=== PATIENT | male | born 1950 | race Caucasian/White ===

== ENCOUNTER → 2021-06-26 | Outpatient (CLI) | payer MEDICARE, OTHER | LOC: ORTHO 11:30 | PROVIDERS: ATTEND Orthopaedic Surgery | DX: M17.9 Osteoarthritis of knee, unspecified (principal) | CPT/HCPCS: 99203 ==

== ENCOUNTER → 2021-07-24 | Outpatient (CLI) | payer MEDICARE, OTHER ==
[~2021-07-24] VITALS: Ht 182.9 cm; Wt 135.3 kg
[~2021-07-24] MED LIST: CHLO25TA22 PO; DILT240T10 PO; FLEC50TA PO; LOVA40TA2 PO; METO-333 PO; RIVA20TA PO
[2021-07-24 09:36] VITALS: BP 139/68
[2021-07-24 10:23] LABS: BASOPHILS % (AUTO) 0 % (0-10); EOSINOPHILS # (AUTO) 0.2 10^3/uL (0.0-0.3); EOSINOPHILS % (AUTO) 3 % (0-10); HEMATOCRIT 42 % (40-54); HEMOGLOBIN 13.9 g/dL (13.3-17.7); LYMPHOCYTES # (AUTO) 1.2 10^3/uL (1.0-4.0); LYMPHOCYTES % (AUTO) 18 % (12-44); MEAN CORPUSCULAR HEMOGLOBIN 31 pg (25-34); MEAN CORPUSCULAR HGB CONC 33 g/dL (32-36); MEAN CORPUSCULAR VOLUME 94 fL (80-99); MEAN PLATELET VOLUME 11.9 fL (9.0-12.2); MONOCYTES # (AUTO) 0.6 10^3/uL (0.0-1.0); MONOCYTES % (AUTO) 9 % (0-12); NEUTROPHILS # (AUTO) 4.6 10^3/uL (1.8-7.8); NEUTROPHILS % (AUTO) 69 % (42-75); PLATELET COUNT 193 10^3/uL (130-400); WHITE BLOOD COUNT 6.6 10^3/uL (4.3-11.0)
[2021-07-24 10:25] LABS: BILIRUBIN,URINE NEGATIVE (NEGATIVE); CLARITY,URINE CLEAR; COLOR,URINE YELLOW; GLUCOSE, URINE (UA) NEGATIVE (NEGATIVE); KETONES,URINE NEGATIVE (NEGATIVE); LEUKOCYTE ESTERASE ,URINE NEGATIVE (NEGATIVE); NITRITE,URINE NEGATIVE (NEGATIVE); PROTEIN,URINE NEGATIVE (NEGATIVE)
[2021-07-24 10:34] LABS: BACTERIA,URINE NEGATIVE /HPF; SQUAMOUS EPITHELIAL CELL,UR RARE /HPF
[2021-07-24 10:39] LABS: CALCIUM 9.4 MG/DL (8.5-10.1); CREATININE SERUM 1.21 MG/DL (0.60-1.30)
== END ==
LOC: PREOP 09:20
PROVIDERS: ATTEND Orthopaedic Surgery
DX: Z01.818 Encounter for other preprocedural examination (principal); M17.12 Unilateral primary osteoarthritis, left knee
CPT/HCPCS: 36415; 80048; 81000; 85025; 86850; 86900; 86901; 87081; 93005

== ENCOUNTER → 2021-07-24 | Outpatient (CLI) | payer MEDICARE, OTHER ==
--- NOTE | 2021-07-24 09:21 | Diagnostic Imaging Report ---
INDICATION: Preoperative evaluation prior to knee replacement. EXAMINATION: 2 view chest 07/24/2021 FINDINGS: The heart is unremarkable. Pulmonary vasculature unremarkable. There are coarsened chronic changes throughout the lungs with no infiltrates or effusions. No pneumothorax. IMPRESSION: 1. No acute cardiopulmonary process. Dictated by: Dictated on workstation # [id number]
== END ==
LOC: ORTHO 08:27
PROVIDERS: ATTEND Orthopaedic Surgery
DX: Z01.89 Encounter for other specified special examinations (principal); M17.12 Unilateral primary osteoarthritis, left knee; Z96.652 Presence of left artificial knee joint
CPT/HCPCS: 71046

== ENCOUNTER → 2021-08-15 | Outpatient (CLI) | payer MEDICARE, OTHER ==
--- NOTE | 2021-08-15 09:20 | Diagnostic Imaging Report ---
Indication: Left knee pain 4 views of the left knee shows no fracture, dislocation or other acute abnormality. There is considerable narrowing of the medial compartment with milder narrowing of the patellofemoral compartment. There is some spurring of all 3 compartments. There is no effusion. IMPRESSION: There are tricompartmental degenerative changes present most pronounced in the medial compartment. Dictated by: Dictated on workstation # [id number]
== END ==
LOC: RAD 08:08
PROVIDERS: ATTEND Orthopaedic Surgery
DX: M17.12 Unilateral primary osteoarthritis, left knee (principal)
CPT/HCPCS: 73564

== ENCOUNTER 2021-08-20 05:59 | Inpatient (IN) | payer MEDICARE, OTHER ==
[2021-08-20] VITALS (12 sets, daily range): BP systolic 143–160; BP diastolic 60–91
[~2021-08-20] VITALS: Ht 182 cm; Wt 135.3 kg
[2021-08-20] MEDS ORDERED: ceFAZolin INJECTION 3,000 MG in NS (IVPB) 100 ML IV ONE (06:15)
[2021-08-20] MEDS ORDERED: proPOfol 200 MG/20 ML (DIPRIVAN) VIAL IV ONE (06:57)
[2021-08-20] MEDS ORDERED: fentaNYL INJ 100 MCG/2 ML AMP ONE ×2 (06:57→07:49)
[2021-08-20] MEDS ORDERED: ONDANSETRON 4 MG/2 ML (SDV) Z0FRAN ONE (06:57)
[2021-08-20] MEDS ORDERED: LIDOCAINE PF 2% 5 ML (XYLOCAINE) VIAL ONE (06:57)
[2021-08-20] MEDS ORDERED: SEVOFLURANE (ULTANE) 15 ML INHAL SOLN ONE ×2 (06:57→09:34)
[2021-08-20] MEDS ORDERED: MIDAZOLAM 2 MG/2 ML (VERSED) VIAL ONE (06:57)
[2021-08-20] MEDS ORDERED: TRANEXAMIC ACID 100 MG/ML 10 ML INJECTION ONE (06:58)
[2021-08-20] MEDS ORDERED: SUCCINYLCHOLINE INJ 100 MG/5 ML SYR/VIAL ONE (06:58)
--- NOTE | 2021-08-20 07:09 | Progress Note-Pre Operative ---
Pre-Operative Progress Note H&P Reviewed The H&P was reviewed, patient examined and no changes noted. Date Seen by Provider: Aug 20, 2021 Time Seen by Provider: 07:00 Date H&P Reviewed: Aug 20, 2021 Time H&P Reviewed: 07:00 Pre-Operative Diagnosis: Left Knee Primary Osteoarthritis MAEVE CANADA MD Aug 20, 2021 07:09
[2021-08-20] MEDS: LACTATED RINGERS 1,000 ML IV PRN ×2 (07:11→10:30)
[2021-08-20] MEDS ORDERED: SODIUM CHLORIDE 0.9% IRRIGATIO 150 ML, TRANEXAMIC ACID INJECTION 3,000 MG IR ONE ×2 (07:30)
[2021-08-20] MEDS ORDERED: ROCURONIUM 50 MG/5 ML (ZEMURON) VIAL IV ONE (09:40)
[2021-08-20] MEDS ORDERED: morphine INJ 10 MG/ML 1ML (SYR OR VIAL) ONE (10:27)
[2021-08-20] MEDS ORDERED: morphine INJ 10 MG/ML 1ML (SYR OR VIAL) IVP ONE (10:30)
[2021-08-20] MEDS ORDERED: fentaNYL INJ 100 MCG/2 ML AMP IVP ONE (10:30)
[2021-08-20] MEDS ORDERED: morphine PCA 100 MG/100 ML BAG IV PRN (10:30)
[2021-08-20] MEDS ORDERED: ONDANSETRON 4 MG/2 ML (SDV) Z0FRAN IVP PRN (10:30)
[2021-08-20] MEDS ORDERED: HYDROmorphone 2 MG/ML VIAL (DILAUDID) IV ONE (10:30)
[2021-08-20] MEDS ORDERED: NALOXONE 0.4 MG/ML 1 ML (NARCAN) VIAL IV PRN ×2 (10:30)
[2021-08-20] MEDS ORDERED: MEPERIDINE (DEMEROL) INJ 50 MG/ML IVP ONE (10:30)
--- NOTE | 2021-08-20 10:43 | Operative Report - Ortho ---
Operative Report Surgeon (s)/Tool Crib Clerk (s) Surgeon MAEVE CANADA MD Tool Crib Clerk n/a Pre-Operative Diagnosis Left Knee Primary Osteoarthritis Post-Operative Diagnosis same Operative Report Date of Procedure: Aug 20, 2021 Name of Procedure Performed: Left Total Knee Arthroplasty Description & Findings After obtaining informed consent and marking the patient in the preoperative holding area, the patient did receive IV antibiotics. Patient was taken to the operating room and anesthesia was induced. Surgical timeout was taken. The left lower extremity was prepped and draped in the usual sterile fashion. Incision was made and carried down to fascia. Arthrotomy was performed on the medial side of the patella. Patella was retracted laterally and knee was flexed. Found to have circumferential osteophtye around the distal femur as well as exposed bone in the medial compartment. Hole was made in the distal femur for the intramedullary distal femoral cutting guide. Resection was made then the femur was sized as a 7. 4-in-1 block for a size [address]. Anterior cut was made and there was no notch. Posterior cut was made followed by the chamfers. Box cut was performed. Lug holes were drilled. Attention was turned to the tibial side, extramedullary tibial guide was put into place and aligned with the tibial crest. It was set to take 2 mm off of the affected medial side. Drop vincent was used to confirm alignment. Resection was made and was parallel to the joint line. Tibial bone block was removed. Lamina lead business systems analyst was put into place and the menisci and posterior osteophytes were removed. The knee was trialed with a size 7 femur and a size 7 tibia with a 9 mm poly trial. It was found to come out to full extension and flexed beyond 120 degrees. It was stable to varus and valgus stress throughout its range of motion. This was accepted. Knee was brought out into extension and the patella was prepared for an inset patellar button. Patellar trial was placed and this tracked well through the groove of the trial femur. Trial implants were removed. Tibial trial was pinned and punched. The cut bone surfaces were lavaged with pulsatile normal saline. Implants were opened and assembled on the back table. Cement was mixed. Cement was applied to the cut bone surface as well as the implant surface. A size 7 tibial component was impacted into placed and excess cement was removed using a [place]. A size 7 femoral component was impacted into place and excess cement was removed using a [place]. Tibial tray was lavaged with saline. A 9 mm thick polyethylene component was locked into placed and the locking mechanism was checked. Knee was brought into extension. Patellar surface was irrigated, dried, and then cement was applied. Patellar component was clamped into place and excess cement was removed using the [place]. The knee was irrigated with normal saline. Irrigation was removed and tranexamic acid was placed. Once the cement had set, the knee was once again trialed; found to come to full extension, flexed beyond 120 degrees, and was stable to varus and valgus stress. Further tranexamic acid was applied for hemostasis. Tourniquet was dropped and electrocautery was used for further hemostasis. Fascial layer was closed with #1 Ethibond. The subcutaneous layer was closed with 2-0 Vicryl. The skin was closed with a running subcuticular 3-0 V-loc. Wound was dressed with mastisol, steri-strips, xeroform, 4x4s, ABD, webril, and JERZY wrap. Patient tolerated the procedure well and was stable to the recovery room. Anesthesia Type General Estimated Blood Loss ~150 mL Specimen(s) collected/removed None MAEVE CANADA MD Aug 20, 2021 10:43
--- NOTE | 2021-08-20 11:07 | Diagnostic Imaging Report ---
KNEE, LEFT, 2 VIEWS (AP LAT) INDICATION: Left total knee arthroplasty, immediate postop COMPARISON: Preoperative radiographs of 08/15/2021 TECHNIQUE: AP and crosstable lateral views of left knee FINDINGS: Expected postoperative soft tissue swelling and joint fluid from total knee arthroplasty. Patellar resurfacing has been performed. Arthroplasty components are in good alignment. No periprosthetic fracture. IMPRESSION: No acute periprosthetic fracture. Dictated by: Dictated on workstation # [id number]
[2021-08-20] MEDS: D5 NS 1000 ML IV SOLUTION 1,000 ML IV SCH ×3 (13:05→23:08)
--- NOTE | 2021-08-20 13:17 | Physical Therapy Evaluation ---
PT Evaluation-General Medical Diagnosis Admission Date Aug 20, 2021 at 05:59 Medical Diagnosis: Left TKR/OA Onset Date: Aug 20, 2021 Therapy Diagnosis Therapy Diagnosis: debility/weakness/left knee limited ROM Precautions Precautions/Isolations: Fall Prevention, Standard Precautions Weight Bear Status Right Lower Extremity: Right Full Weight Bearing Left Lower Extremity: Left Weight Bearing/Tolerated Referral Physician: Lisseth Reason for Referral: Evaluation/Treatment Medical History Pertinent Medical History: Arthritis, OA Current History s/p elective left TKR Reviewed History: Yes Social History Home: Single Level Current Living Status: Spouse Entry Into Home: Stairs With Railing PT Steps Into Home: 4 Prior Prior Level of Function SCALE: Activities may be completed with or without assistive devices. 9-Gnopxdfbvw-zxqeltn completes the activity by him/herself with no assistance from a helper. 5-Set-up or Clean-up Assistance-helper sets up or cleans up; patient completes activity. [place] assists only prior to or following the activity. 4-Supervision or Touching Assistance-helper provides verbal cues and/or touching/steadying and/or contact guard assistance as patient completes activity. Assistance may be provided throughout the activity or intermittently. 3-Partial/Moderate Assistance-helper does LESS THAN HALF the effort. [place] lifts, holds or supports trunk or limbs, but provides less than half the effort. 2-Substantial/Maximal Assistance-helper does MORE THAN HALF the effort. [place] lifts or holds trunk or limbs and provides more than half the effort. 4-Vntqitilk-mjamzu does ALL the effort. Patient does none of the effort to complete the activity. Or, the assistance of 2 or more helpers is required for the patient to complete the activity. If activity was not attempted, code reason: 7-Patient Refused. 9-Not Applicable-not attempted and the patient did not perform the activity before the current illness, exacerbation or injury. 10-Not Attempted due to Environmental Limitations-(lack of equipment, weather restraints, etc.). 88-Not Attempted due to Medical Conditions or Safety Concerns. Bed Mobility: 6 Transfers (B,C,W/C): 6 Gait: 6 Stairs: 6 Indoor Mobility (Ambulation): Independent Stairs: Independent Prior Devices Use: None PT Evaluation-Current Subjective Patient agrees to begin PT. More alert. Pain Numeric Pain Scale: 5-Moderate Pain Location: Left Location Body Site: Knee Pain Description: Acute Objective Patient Orientation: Person, Time, Situation Attachments: Oxygen, IV ROM/Strength ROM Lower Extremities right LE WFL/left LE CPM 0-50 degrees Strength Lower Extremities right LE 4/5 grossly/left LE 4-/5 grossly Integumentary/Posture Bowel Incontinence: No Bladder Incontinence: No Posture WFL Neuromuscular (Tone, Coordination, Reflexes) grossly intact Sensory Vision: Functional Hearing: Functional Transfers Roll Left to Right (QC): 6 Sit to Lying (QC): 6 Lying to Sitting/Side of Bed(Q: 6 Sit to Stand (QC): 4 (CGA for safety) Gait Does the Patient Walk?: Yes Mode of Locomotion: Walk Anticipated Mode of Locomotion: Walk Walk 10 feet (QC): 4 Walk 50 ft with 2 Turns(QC): 88 Walk 150 ft (QC): 88 Gait Assistive Device: FWW Comments/Gait Description functional gait sequence (patient unsafe due to sedation to ambulate distance this p.m.) Balance Sitting Static: Normal Sitting Dynamic: Normal Standing Static: Good Standing Dynamic: Good Treatment CPM 0-50 degrees with polar pack in place left LE Assessment/Needs 71 y.o. male, will benefit from skilled PT to address functional strength and mobility to improve current LOF to safely return to home with spouse at maximum LOF. Rehab Potential: Fair PT Residential Goals Assurance Specialist Goals PT Assurance Specialist Goals Time Frame: Aug 25, 2021 Roll Left & Right (QC): 6 Sit to Lying (QC): 6 Lying-Sitting on Side/Bed(QC): 6 Sit to Stand (QC): 6 Chair/Azl-vv-Xynrk Xfer(QC): 6 Toilet Transfer (QC): 6 Walk 10 feet (QC): 6 Walk 50ft with 2 Turns (QC): 6 Walk 150 ft (QC): 6 Walking 10ft on Uneven Surface: 6 1 Step (curb) (QC): 6 4 Steps (QC): 6 PT Plan Problem List Problem List: Activity Tolerance, Functional Strength, Safety, Balance, Gait, Transfer, Bed Mobility, ROM Treatment/Plan Treatment Plan: Continue Plan of Care Treatment Plan: Bed Mobility, Education, Functional Activity Wilda, Functional Strength, Gait, Safety, Therapeutic Exercise, Transfers Treatment Duration: Aug 25, 2021 Frequency: 11 times per week Estimated Hrs Per Day: .5 hour per day (to 1 hour) Patient and/or Family Agrees t: Yes Time/GCodes Time In: 1345 Time Out: 1405 Total Billed Treatment Time: 33 (with CPM time added) Total Billed Treatment 1 visit CPM/PADS 13 min ([id number]) 1 visit EVModC 20 min ([id number]) IRVING NG PT Aug 20, 2021 13:17
[2021-08-20] MEDS: ceFAZolin INJECTION 3,000 MG in NS (IVPB) 100 ML IV SCH ×2 (13:45→21:32)
[2021-08-20] MEDS: SENNA W/DOCUSATE (SENOKOT S) TABLET PO SCH (21:32)
[2021-08-20] MEDS: SIMvastatin 20 MG (ZOCOR) TAB PO SCH (21:33)
[2021-08-20] MEDS: meTOprolol TARTRATE 25 MG (LOPRESSOR) TABLET PO SCH (21:33)
[2021-08-20] MEDS: FLECAINIDE 100 MG (TAMBOCOR) TAB PO SCH (21:33)
[2021-08-21 03:32] VITALS: BP 149/70
[2021-08-21] MEDS: MULTIVIT W/MINERALS TAB (THERAGRAN M) PO SCH (05:47)
[2021-08-21 06:00] LABS: HEMOGLOBIN 11.8 g/dL (13.3-17.7)
[2021-08-21] MEDS: D5 NS 1000 ML IV SOLUTION 1,000 ML IV SCH ×2 (07:00→12:56)
[2021-08-21 07:51] VITALS: BP 145/61
--- NOTE | 2021-08-21 08:22 | Progress Note - Ortho ---
Progress Note Subjective Date of Exam 08/21/21 Chief Complaint POD #1 L TKA HPI/Events since last exam having some difficulty with left knee pain, using ELEMENTARY SCHOOL READING TEACHER and oral medication, has been making progress with therapy, tolerating diet Review of Systems not obtained Allergies: Coded Allergies: No Known Drug Allergies (Unverified , 07/24/21) Home Meds Reported Medications Chlorthalidone (Chlorthalidone) 25 Mg Tablet, 25 MG PO DAILY, TAB 07/24/21 Diltiazem HCl (Diltiazem ER) 240 Mg Tab.er.24h, 240 MG PO DAILY, TAB 07/24/21 Lovastatin (Lovastatin) 40 Mg Tablet, 40 MG PO HS, TAB 07/24/21 Rivaroxaban (Xarelto) 20 Mg Tablet, 20 MG PO HS, TAB 07/24/21 Flecainide Acetate (Flecainide Acetate) 50 Mg Tablet, 50 MG PO BID, TAB 07/24/21 Metoprolol Tartrate (Metoprolol Tartrate) 25 Mg Tablet, 25 MG PO BID, TAB 07/24/21 Objective Exam L Knee: Dressing C/D/I, + DF of ankle, no s/s of DVT Vital Signs Vital Signs Date Time Temp Pulse Resp B/P (MAP) Pulse Ox O2 Delivery O2 Flow Rate FiO2 08/21/21 07:51 36.8 89 20 145/61 (89) 95 Nasal Cannula 1.00 08/21/21 07:36 Nasal Cannula 1.00 08/21/21 07:35 97 Nasal Cannula 3.00 08/21/21 03:32 36.9 86 20 149/70 (96) 95 Nasal Cannula 3.00 08/20/21 23:38 36.8 84 20 158/72 (100) 98 Nasal Cannula 3.00 08/20/21 21:00 Nasal Cannula 3.00 08/20/21 19:41 36.9 85 20 150/75 (100) 96 Nasal Cannula 3.00 08/20/21 15:27 36.3 74 19 160/71 (100) 98 Nasal Cannula 3.00 08/20/21 12:00 36.3 84 20 148/71 (96) 93 Nasal Cannula 3.00 08/20/21 11:40 Nasal Cannula 3.00 08/20/21 11:20 36.5 20 152/83 (106) 95 Nasal Cannula 3 08/20/21 11:20 Nasal Cannula 3 08/20/21 11:15 Nasal Cannula 3 08/20/21 11:10 20 146/69 (94) 94 Nasal Cannula 3 08/20/21 11:00 OxyMask 3 08/20/21 11:00 20 146/69 (94) 93 OxyMask 5 08/20/21 10:50 20 148/60 (89) 96 OxyMask 5 08/20/21 10:45 OxyMask 5 08/20/21 10:40 20 151/62 (91) 97 OxyMask 10 08/20/21 10:30 OxyMask 10 08/20/21 10:30 20 155/74 (101) 97 OxyMask 10 08/20/21 10:23 36.5 16 143/75 (97) 94 OxyMask 10 08/20/21 10:23 OxyMask 10 I & O 08/21/21 07:00 Intake Total 2960 ml Output Total 2035 ml Balance 925 ml Lab Results Laboratory Tests 08/21/21 05:45: Hemoglobin 11.8L, Hematocrit 36L Imaging 2 postop views of the left knee demonstrate components to be in good position without complication Assessment and Plan Assessment s/p L TKA Problem List s/p L TKA Plan PT/OT DVT Prophylaxis (restart home Xarelto today) Home with Home Health probably Pain control; work on weaning ELEMENTARY SCHOOL READING TEACHER Final Diagonsis s/p L TKA Level of the visit: Level 3 (global postop) MAEVE CANADA MD Aug 21, 2021 08:22
[2021-08-21] MEDS: meTOprolol TARTRATE 25 MG (LOPRESSOR) TABLET PO SCH ×2 (09:04→21:42)
[2021-08-21] MEDS: CHLORTHALIDONE 25 MG (HYGROTON) TABLET PO SCH (09:04)
[2021-08-21] MEDS: FLECAINIDE 100 MG (TAMBOCOR) TAB PO SCH ×2 (09:04→21:42)
[2021-08-21] MEDS: SENNA W/DOCUSATE (SENOKOT S) TABLET PO SCH ×2 (09:04→21:42)
--- NOTE | 2021-08-21 10:13 | Physical Therapy Daily Note ---
PT Daily Note-Current Subjective Patient agrees to PT. Pain Numeric Pain Scale: 10-Worst Possible Pain Location: Left Location Body Site: Knee Pain Description: Acute Mental Status Patient Orientation: Normal For Age Attachments: Oxygen, IV Transfers SCALE: Activities may be completed with or without assistive devices. 3-Qwpjqyvqiq-irmwjqp completes the activity by him/herself with no assistance from a helper. 5-Set-up or Clean-up Assistance-helper sets up or cleans up; patient completes activity. [place] assists only prior to or following the activity. 4-Supervision or Touching Assistance-helper provides verbal cues and/or touching/steadying and/or contact guard assistance as patient completes activity. Assistance may be provided throughout the activity or intermittently. 3-Partial/Moderate Assistance-helper does LESS THAN HALF the effort. [place] lifts, holds or supports trunk or limbs, but provides less than half the effort. 2-Substantial/Maximal Assistance-helper does MORE THAN HALF the effort. [place] lifts or holds trunk or limbs and provides more than half the effort. 9-Fpduqaosy-ckkzlx does ALL the effort. Patient does none of the effort to complete the activity. Or, the assistance of 2 or more helpers is required for the patient to complete the activity. If activity was not attempted, code reason: 7-Patient Refused. 9-Not Applicable-not attempted and the patient did not perform the activity before the current illness, exacerbation or injury. 10-Not Attempted due to Environmental Limitations-(lack of equipment, weather restraints, etc.). 88-Not Attempted due to Medical Conditions or Safety Concerns. Lying to Sitting/Side of Bed(Q: 5 Sit to Stand (QC): 4 Chair/Jwj-vu-Jajxn Xfer(QC): 4 Weight Bearing Right Lower Extremity: Right Full Weight Bearing Left Lower Extremity: Left Weight Bearing/Tolerated Gait Training Does the Patient Walk?: Yes Distance: 250' Walk 10 feet (QC): 4 Walk 50 ft with 2 Turns(QC): 4 Walk 150 ft (QC): 4 Gait Assistive Device: FWW steady, step to, antalgic Exercises Supine Ex: Ankle pumps, Quad Set, Heel Slides, Straight leg raise Supine Reps: 15 Seated Therapy Exercises: Long arc quads Seated Reps: 12 Assessment Patient has increase c/o left knee pain with meds issued. Patient has DISPLAY ARTIST pump and pain pills. Patient up in recliner and tolerated treatment well. Left knee ROM progressing actively. PT Optical Instrument Specialist Goals Optical Instrument Specialist Goals PT Optical Instrument Specialist Goals Time Frame: Aug 25, 2021 Roll Left & Right (QC): 6 Sit to Lying (QC): 6 Lying-Sitting on Side/Bed(QC): 6 Sit to Stand (QC): 6 Chair/Viw-nt-Leadu Xfer(QC): 6 Toilet Transfer (QC): 6 Walk 10 feet (QC): 6 Walk 50ft with 2 Turns (QC): 6 Walk 150 ft (QC): 6 Walking 10ft on Uneven Surface: 6 1 Step (curb) (QC): 6 4 Steps (QC): 6 PT Plan Treatment/Plan Treatment Plan: Continue Plan of Care Treatment Plan: Bed Mobility, Education, Functional Activity Wilda, Functional Strength, Gait, Safety, Therapeutic Exercise, Transfers Treatment Duration: Aug 25, 2021 Frequency: 11 times per week Estimated Hrs Per Day: .5 hour per day (to 1 hour) Patient and/or Family Agrees t: Yes Time/GCodes Time In: 740 Time Out: 806 Total Billed Treatment Time: 26 Total Billed Treatment 1 visit EX 12 min GT 14 min IRVING NG PT Aug 21, 2021 10:13
[2021-08-21 11:43] VITALS: BP 148/66
--- NOTE | 2021-08-21 12:13 | Occupational Therapy Eval ---
OT Evaluation-General/PLF Medical Diagnosis Admission Date Aug 20, 2021 at 05:59 Medical Diagnosis: Left TKR/OA Onset Date: Aug 20, 2021 Therapy Diagnosis Therapy Diagnosis: Impaired adls, endurance Precautions Precautions/Isolations: Fall Prevention, Standard Precautions Weight Bear Status Weight Bearing Restriction: Weight Bearing/Tolerated Location Restriction: L LE Referral Physician: Lisseth Referral Reason: Evaluation/Treatment Medical History Pertinent Medical History: Arthritis, OA Current History Post op day 1 s/p L TKR. Pt reports living in house with . Indep with all adls, shares iadl responsibilities. 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 Reviewed History: Yes Social History Home: Single Level Current Living Status: Spouse Entry Into Home: Stairs With Railing Steps Into Home: 4 ADL-Prior Level of Function SCALE: Activities may be completed with or without assistive devices. 5-Jhinutjxfy-eiwqtrw completes the activity by him/herself with no assistance from a helper. 5-Set-up or Clean-up Assistance-helper sets up or cleans up; patient completes activity. [place] assists only prior to or following the activity. 4-Supervision or Touching Assistance-helper provides verbal cues and/or touching/steadying and/or contact guard assistance as patient completes activity. Assistance may be provided throughout the activity or intermittently. 3-Partial/Moderate Assistance-helper does LESS THAN HALF the effort. [place] lifts, holds or supports trunk or limbs, but provides less than half the effort. 2-Substantial/Maximal Assistance-helper does MORE THAN HALF the effort. [place] lifts or holds trunk or limbs and provides more than half the effort. 8-Hizzljahg-wwiqdu does ALL the effort. Patient does none of the effort to complete the activity. Or, the assistance of 2 or more helpers is required for the patient to complete the activity. If activity was not attempted, code reason: 7-Patient Refused. 9-Not Applicable-not attempted and the patient did not perform the activity before the current illness, exacerbation or injury. 10-Not Attempted due to Environmental Limitations-(lack of equipment, weather restraints, etc.). 88-Not Attempted due to Medical Conditions or Safety Concerns. Self Care: Independent Functional Cognition: Independent DME/Equipment: Grab Bars DME/Equipment Comments built in shower seat Drive Self: Yes OT Current Status Subjective reports pain as 7/10 in L knee. Still with MOTOR HOME ELECTRICAL FOREMAN pump Appearance Left reclined in bed, all needs within reach, in room. Mental Status/Objective Patient Orientation: Person, Place, Time, Situation Attachments: IV Current Glasses/Contacts: Yes Hearing Aids: No Dentures/Partials: No Hand Dominance: Right Upper Extremity ROM WNL Upper Extremity Strength WNL ADL-Treatment Pt resting in bed at OT arrival. During interview, lunch tray provided. Encouragement to move to chair to eat. requests pt remain in bed as he was just sitting in chair and now wearing CPM. Pt following 's commands. No OOB/EOB activities performed. Assist for tray set up. Per PT note, pt ambulate 250 feet with CGA and use of walker. Education OT Patient Education: Correct positioning, Progress toward Goal/Update tx plan, Reviewed precautions Teaching Recipient: Patient, Family Teaching Methods: Discussion Response to Teaching: Verbalize Understanding, Reinforcement Needed OT Assisted Goals Assisted Goals Time Frame: Aug 28, 2021 Oral Hygiene (QC): 5 Toileting Hygiene (QC): 5 Lower Body Dressing (QC): 4 On/Off Footwear (QC): 4 1=Demonstrate adherence to instructed precautions during ADL tasks. 2=Patient will verbalize/demonstrate understanding of assistive devices/modifications for ADL. 3=Patient will improve strength/tolerance for activity to enable patient to perform ADL's. OT Education/Plan Problem List/Assessment Assessment: Decreased Activ Tolerance, Impaired Self-Care Skills Discharge Recommendations Plan/Recommendations: Continue POC Comment ongoing assessment. Anticipate home with family assist pending progress. Treatment Plan/Plan of Care Treatment,Training & Education: Yes Patient would benefit from OT for education, treatment and training to promote independence in ADL's, mobility, safety and/or upper extremity function for AD L's. Plan of Care: ADL Retraining, Functional Mobility, UE Funct Exercise/Act Treatment Duration: Aug 28, 2021 Frequency: 4 times per week Agreement: Yes Rehab Potential: Fair 3-4x/week Time/GCodes Start Time: 11:53 Stop Time: 12:05 Total Time Billed (hr/min): 12 Billed Treatment Time 1 visit Elida Lomeli OT Aug 21, 2021 12:13
--- NOTE | 2021-08-21 14:07 | Physical Therapy Daily Note ---
PT Daily Note-Current Subjective Patient on CPM. Patient moves a lot in bed and is not safe to have CPM in place. CPM has moved to EOB several times due to this. This PT removed CPM from room. Patient agrees to PT. Spouse present. Pain Numeric Pain Scale: 8 Location: Left Location Body Site: Knee Pain Description: Acute Mental Status Patient Orientation: Normal For Age Attachments: IV Transfers SCALE: Activities may be completed with or without assistive devices. 5-Anrsvjqvqi-drceyje completes the activity by him/herself with no assistance from a helper. 5-Set-up or Clean-up Assistance-helper sets up or cleans up; patient completes activity. [place] assists only prior to or following the activity. 4-Supervision or Touching Assistance-helper provides verbal cues and/or touching/steadying and/or contact guard assistance as patient completes activity. Assistance may be provided throughout the activity or intermittently. 3-Partial/Moderate Assistance-helper does LESS THAN HALF the effort. [place] lifts, holds or supports trunk or limbs, but provides less than half the effort. 2-Substantial/Maximal Assistance-helper does MORE THAN HALF the effort. [place] lifts or holds trunk or limbs and provides more than half the effort. 1-Xmkwwcoxy-osfdun does ALL the effort. Patient does none of the effort to complete the activity. Or, the assistance of 2 or more helpers is required for the patient to complete the activity. If activity was not attempted, code reason: 7-Patient Refused. 9-Not Applicable-not attempted and the patient did not perform the activity before the current illness, exacerbation or injury. 10-Not Attempted due to Environmental Limitations-(lack of equipment, weather restraints, etc.). 88-Not Attempted due to Medical Conditions or Safety Concerns. Lying to Sitting/Side of Bed(Q: 6 Sit to Stand (QC): 4 Chair/Byx-zn-Ewkun Xfer(QC): 4 Weight Bearing Right Lower Extremity: Right Full Weight Bearing Left Lower Extremity: Left Weight Bearing/Tolerated Gait Training Does the Patient Walk?: Yes Distance: 250' Walk 10 feet (QC): 4 Walk 50 ft with 2 Turns(QC): 4 Walk 150 ft (QC): 4 Gait Assistive Device: FWW very slow, antalgic gait with VC's for body position in FWW and to stand erect Exercises Supine Ex: Ankle pumps, Quad Set, Heel Slides, Straight leg raise Supine Reps: 15 Seated Therapy Exercises: Long arc quads Seated Reps: 15 Assessment Patient improving with treatment plan. Continues to require VC's for gait/body placement in FWW for mobility and safety. Increase activity as tolerated by patient. PT Fpc Goals Fpc Goals PT Brake Repairer Hydraulic Goals Time Frame: Aug 25, 2021 Roll Left & Right (QC): 6 Sit to Lying (QC): 6 Lying-Sitting on Side/Bed(QC): 6 Sit to Stand (QC): 6 Chair/Cdq-mz-Ptkki Xfer(QC): 6 Toilet Transfer (QC): 6 Walk 10 feet (QC): 6 Walk 50ft with 2 Turns (QC): 6 Walk 150 ft (QC): 6 Walking 10ft on Uneven Surface: 6 1 Step (curb) (QC): 6 4 Steps (QC): 6 PT Plan Treatment/Plan Treatment Plan: Continue Plan of Care Treatment Plan: Bed Mobility, Education, Functional Activity Wilda, Functional Strength, Gait, Safety, Therapeutic Exercise, Transfers Treatment Duration: Aug 25, 2021 Frequency: 11 times per week Estimated Hrs Per Day: .5 hour per day (to 1 hour) Patient and/or Family Agrees t: Yes Time/GCodes Time In: 1326 Time Out: 1355 Total Billed Treatment Time: 29 Total Billed Treatment 1 visit EX 14 min GT 15 min IRVING NG PT Aug 21, 2021 14:07
[2021-08-21 15:29] VITALS: BP 126/55
[2021-08-21 20:00] VITALS: BP 119/64
[2021-08-21] MEDS: RIVAROXABAN 20 MG TABLET (XARELTO) PO SCH (21:42)
[2021-08-21] MEDS: SIMvastatin 20 MG (ZOCOR) TAB PO SCH (21:43)
[2021-08-21 23:52] VITALS: BP 142/63
[2021-08-22 04:04] VITALS: BP 137/61
[2021-08-22] MEDS: MULTIVIT W/MINERALS TAB (THERAGRAN M) PO SCH (06:08)
[2021-08-22 06:31] LABS: HEMOGLOBIN 11.9 g/dL (13.3-17.7)
[2021-08-22 08:00] VITALS: BP 135/65
--- NOTE | 2021-08-22 08:58 | Anesthesia-General Post-Op ---
General Patient Condition Mental Status/LOC: Same as Preop Cardiovascular: Satisfactory Nausea/Vomiting: Absent Respiratory: Satisfactory Pain: Controlled Complications: Absent Post Op Complications Complications None Follow Up Care/Instructions Patient Instructions None needed. Anesthesia/Patient Condition Patient Condition Patient is doing well, no complaints, stable vital signs, no apparent adverse anesthesia problems. No complications reported per nursing. JERROD ALDRIDGE CRNA Aug 22, 2021 08:58
--- NOTE | 2021-08-22 09:06 | Progress Note - Ortho ---
Progress Note Subjective Date of Exam 08/22/21 Chief Complaint POD #2 L TKA HPI/Events since last exam Pain improved, using INTELLIGENCE OPERATIONS minimally, making some progress with therapy Review of Systems not obtained Allergies: Coded Allergies: No Known Drug Allergies (Unverified , 07/24/21) Home Meds Reported Medications Chlorthalidone (Chlorthalidone) 25 Mg Tablet, 25 MG PO DAILY, TAB 07/24/21 Diltiazem HCl (Diltiazem ER) 240 Mg Tab.er.24h, 240 MG PO DAILY, TAB 07/24/21 Lovastatin (Lovastatin) 40 Mg Tablet, 40 MG PO HS, TAB 07/24/21 Rivaroxaban (Xarelto) 20 Mg Tablet, 20 MG PO HS, TAB 07/24/21 Flecainide Acetate (Flecainide Acetate) 50 Mg Tablet, 50 MG PO BID, TAB 07/24/21 Metoprolol Tartrate (Metoprolol Tartrate) 25 Mg Tablet, 25 MG PO BID, TAB 07/24/21 Objective Exam L Knee: Incision C/D/I, + DF, no s/s of DVT Vital Signs Vital Signs Date Time Temp Pulse Resp B/P (MAP) Pulse Ox O2 Delivery O2 Flow Rate FiO2 08/22/21 08:00 37.0 88 20 135/65 (88) 91 Room Air 08/22/21 04:04 37.6 81 18 137/61 (86) 94 NIV CPAP 2.00 08/21/21 23:52 36.7 71 18 142/63 (89) 93 NIV CPAP 2.00 08/21/21 22:21 Nasal Cannula 3.00 08/21/21 20:00 37.2 73 22 119/64 (82) 94 Nasal Cannula 1.00 08/21/21 15:29 37.8 86 20 126/55 (78) 94 Nasal Cannula 1.00 08/21/21 11:43 36.7 91 20 148/66 (93) 91 Room Air 0.00 I & O 08/22/21 07:00 Intake Total 1430 ml Output Total 775 ml Balance 655 ml Lab Results Laboratory Tests 08/22/21 05:32: Hemoglobin 11.9L, Hematocrit 37L Assessment and Plan Assessment s/p L TKA Problem List s/p L TKA Plan PT/OT DVT prophylaxis Plan for home with home health tomorrow Final Diagonsis s/p L TKA Level of the visit: Level 3 (postop global) MAEVE CANADA MD Aug 22, 2021 09:06
[2021-08-22] MEDS ORDERED: morphine INJ 4 MG/ML 1 ML (VIAL/SYRINGE) IVP PRN (09:15)
[2021-08-22] MEDS: meTOprolol TARTRATE 25 MG (LOPRESSOR) TABLET PO SCH ×2 (10:03→19:52)
[2021-08-22] MEDS: SENNA W/DOCUSATE (SENOKOT S) TABLET PO SCH ×2 (10:03→19:52)
[2021-08-22] MEDS: FLECAINIDE 100 MG (TAMBOCOR) TAB PO SCH ×2 (10:03→19:52)
[2021-08-22] MEDS: CHLORTHALIDONE 25 MG (HYGROTON) TABLET PO SCH (10:04)
--- NOTE | 2021-08-22 10:31 | Occupational Ther Daily Note ---
OT Current Status-Daily Note Subjective Pt reports pain in L knee as 7/10. Agreeable to treatment. Appearance Returned to sitting in chair. RN in room at OT departure. Mental Status/Objective Patient Orientation: Person, Place, Situation Attachments: IV ADL-Treatment Therapy Code Descriptions/Definitions Functional [place] Measure: 0=Not Assessed/NA 4=Minimal Assistance 1=Total Assistance 5=Supervision or Setup 2=Maximal Assistance 6=Modified [place] 3=Moderate Assistance 7=Complete IndependenceSCALE: Activities may be completed with or without assistive devices. 8-Qgtnlurcht-bizuuvd completes the activity by him/herself with no assistance from a helper. 5-Set-up or Clean-up Assistance-helper sets up or cleans up; patient completes activity. [place] assists only prior to or following the activity. 4-Supervision or Touching Assistance-helper provides verbal cues and/or touching/steadying and/or contact guard assistance as patient completes activity. Assistance may be provided throughout the activity or intermittently. 3-Partial/Moderate Assistance-helper does LESS THAN HALF the effort. [place] lifts, holds or supports trunk or limbs, but provides less than half the effort. 2-Substantial/Maximal Assistance-helper does MORE THAN HALF the effort. [place] lifts or holds trunk or limbs and provides more than half the effort. 4-Qccwyjdxs-cojtqh does ALL the effort. Patient does none of the effort to compl ete the activity. Or, the assistance of 2 or more helpers is required for the patient to complete the activity. If activity was not attempted, code reason: 7-Patient Refused. 9-Not Applicable-not attempted and the patient did not perform the activity before the current illness, exacerbation or injury. 10-Not Attempted due to Environmental Limitations-(lack of equipment, weather restraints, etc.). 88-Not Attempted due to Medical Conditions or Safety Concerns. On/Off Footwear: 3 Toileting Hygiene (QC): 4 Toilet Transfer (QC): 4 Pt sitting in recliner at OT arrival. Able to doff/don R sock with extra effort. Dep to don L sock after effortful attempt. Pt declines instruction on AE and reports his will assist. Anticipate improved indep with task once knee ROM restored. Sit<>stand with CGA, extra time to come to full upright. Pt ambulated to/from bathroom with CGA and use of walker. OT managing IV pole. Slow but steady gait. Pt lowered to toilet (commode placed over for increased height) with use of grab bar and CGA. Attempt at BM unsuccessful. Extra time to stand and initiate first step with all sit<>stands. Education OT Patient Education: Exercise program, Modified ADL techniques, Progress toward Goal/Update tx plan, Purpose of tx/functional activities, Reviewed precautions, Safety issues, Transfer techniques Teaching Recipient: Patient Teaching Methods: Discussion Response to Teaching: Verbalize Understanding OT Nursing Home Goals Pocket Stitcher Goals Time Frame: Aug 28, 2021 Oral Hygiene (QC): 5 Toileting Hygiene (QC): 5 Lower Body Dressing (QC): 4 On/Off Footwear (QC): 4 1=Demonstrate adherence to instructed precautions during ADL tasks. 2=Patient will verbalize/demonstrate understanding of assistive devices/modifications for ADL. 3=Patient will improve strength/tolerance for activity to enable patient to perform ADL's. OT Education/Plan Problem List/Assessment Assessment: Decreased Activ Tolerance, Impaired I ADL's, Impaired Self-Care Skills Discharge Recommendations Plan/Recommendations: Continue POC Treatment Plan/Plan of Care Treatment,Training & Education: Yes Patient would benefit from OT for education, treatment and training to promote independence in ADL's, mobility, safety and/or upper extremity function for ADL's. Plan of Care: ADL Retraining, Functional Mobility, UE Funct Exercise/Act Treatment Duration: Aug 28, 2021 Frequency: 4 times per week Agreement: Yes Rehab Potential: Fair Time/GCodes Start Time: 09:26 Stop Time: 09:49 Total Time Billed (hr/min): 23 Billed Treatment Time 1 visit ADL x2 Elida Billy OT Aug 22, 2021 10:31
--- NOTE | 2021-08-22 10:32 | Physical Therapy Daily Note ---
PT Daily Note-Current Subjective Pt in recliner upon arrival and agrees to PT. Pt reports that he thinks he is doing better today. Pain Numeric Pain Scale: 7 Location: Left Location Body Site: Knee Mental Status Patient Orientation: Normal For Age Attachments: IV Transfers SCALE: Activities may be completed with or without assistive devices. 7-Nayvwnmmgx-vqjpqvz completes the activity by him/herself with no assistance from a helper. 5-Set-up or Clean-up Assistance-helper sets up or cleans up; patient completes activity. [place] assists only prior to or following the activity. 4-Supervision or Touching Assistance-helper provides verbal cues and/or touching/steadying and/or contact guard assistance as patient completes activity. Assistance may be provided throughout the activity or intermittently. 3-Partial/Moderate Assistance-helper does LESS THAN HALF the effort. [place] lifts, holds or supports trunk or limbs, but provides less than half the effort. 2-Substantial/Maximal Assistance-helper does MORE THAN HALF the effort. [place] lifts or holds trunk or limbs and provides more than half the effort. 8-Yndglqmil-zaczwq does ALL the effort. Patient does none of the effort to complete the activity. Or, the assistance of 2 or more helpers is required for the patient to complete the activity. If activity was not attempted, code reason: 7-Patient Refused. 9-Not Applicable-not attempted and the patient did not perform the activity before the current illness, exacerbation or injury. 10-Not Attempted due to Environmental Limitations-(lack of equipment, weather restraints, etc.). 88-Not Attempted due to Medical Conditions or Safety Concerns. Sit to Stand (QC): 4 Weight Bearing Right Lower Extremity: Right Full Weight Bearing Left Lower Extremity: Left Weight Bearing/Tolerated Gait Training Does the Patient Walk?: Yes Distance: 275' Walk 10 feet (QC): 4 Walk 50 ft with 2 Turns(QC): 4 Walk 150 ft (QC): 4 Gait Assistive Device: FWW Pt ambulates very slowly and requires skilled verbal cues for safety about body placement while using FWW. Exercises Seated Therapy Exercises: Ankle pumps, Long arc quads, Hamstring Curls Seated Reps: 15 Standing: Sit to Stand Standing Reps: 2 Treatments Pt in recliner upon arrival and agrees to PT. Then performs seated exs w/ CGA/Nehemias for LLE. Pt then performs sit to stand and requires CGA for safety. Pt then needs to stand for a minute in order to straighten his knee out and "get it going". Then amb out into [place] 275' and requires CGA and skilled verbal cues about body placement during amb. Pt then TFs back to his recliner. Call light nearby and all needs met PT departs. Assessment Current Status: Good Progress Pt able to increase ambulation distance this date. Pt requires CGA for all TFs and skilled verbal cues about body position in FWW during amb. PT Detention Goals Detention Goals PT Detention Goals Time Frame: Aug 25, 2021 Roll Left & Right (QC): 6 Sit to Lying (QC): 6 Lying-Sitting on Side/Bed(QC): 6 Sit to Stand (QC): 6 Chair/Dgc-dv-Dmwgb Xfer(QC): 6 Toilet Transfer (QC): 6 Walk 10 feet (QC): 6 Walk 50ft with 2 Turns (QC): 6 Walk 150 ft (QC): 6 Walking 10ft on Uneven Surface: 6 1 Step (curb) (QC): 6 4 Steps (QC): 6 PT Plan Problem List Problem List: Activity Tolerance, Functional Strength, Safety Treatment/Plan Treatment Plan: Continue Plan of Care Treatment Plan: Bed Mobility, Education, Functional Activity Wilda, Functional Strength, Gait, Safety, Therapeutic Exercise, Transfers Treatment Duration: Aug 25, 2021 Frequency: 11 times per week Estimated Hrs Per Day: .5 hour per day (to 1 hour) Patient and/or Family Agrees t: Yes Safety Risks/Education Patient Education: Transfer Techniques, Correct Positioning Teaching Recipient: Patient Teaching Methods: Discussion Response to Teaching: Return Demonstration Time/GCodes Time In: 815 Time Out: 0843 Total Billed Treatment Time: 28 Total Billed Treatment 1 visit, GT (15min), EX (13min) VANDANA RAMOS PTA Aug 22, 2021 10:32
[2021-08-22 11:23] VITALS: BP 154/74
--- NOTE | 2021-08-22 14:33 | Physical Therapy Daily Note ---
PT Daily Note-Current Subjective Patient in recliner pre tx, agrees to PT, has 5/10 pain in left knee. Appearance Patient in recliner post tx with nurse call, phone, tray, all needs met. Mental Status Patient Orientation: Person, Place, Situation Transfers SCALE: Activities may be completed with or without assistive devices. 3-Zbzfmqginc-nifrzfg completes the activity by him/herself with no assistance from a helper. 5-Set-up or Clean-up Assistance-helper sets up or cleans up; patient completes activity. [place] assists only prior to or following the activity. 4-Supervision or Touching Assistance-helper provides verbal cues and/or to uching/steadying and/or contact guard assistance as patient completes activity. Assistance may be provided throughout the activity or intermittently. 3-Partial/Moderate Assistance-helper does LESS THAN HALF the effort. [place] lifts, holds or supports trunk or limbs, but provides less than half the effort. 2-Substantial/Maximal Assistance-helper does MORE THAN HALF the effort. [place] lifts or holds trunk or limbs and provides more than half the effort. 7-Sdzqzbhvq-ytkzbf does ALL the effort. Patient does none of the effort to complete the activity. Or, the assistance of 2 or more helpers is required for the patient to complete the activity. If activity was not attempted, code reason: 7-Patient Refused. 9-Not Applicable-not attempted and the patient did not perform the activity before the current illness, exacerbation or injury. 10-Not Attempted due to Environmental Limitations-(lack of equipment, weather restraints, etc.). 88-Not Attempted due to Medical Conditions or Safety Concerns. Sit to Stand (QC): 6 Chair/Mbn-nk-Ichea Xfer(QC): 4 Weight Bearing Right Lower Extremity: Right Full Weight Bearing Left Lower Extremity: Left Weight Bearing/Tolerated Gait Training Distance: 200' Walk 10 feet (QC): 4 Walk 50 ft with 2 Turns(QC): 4 Walk 150 ft (QC): 4 Gait Persons Needed: 1 Gait Assistive Device: FWW Patient ambulates slowly, has fair step through but keeps a flexed left knee during ambulation, bears a lot of weight through walker. Exercises Supine Ex: Quad Set Supine Reps: 20 (done in recliner with legs up) Seated Therapy Exercises: Ankle pumps, Long arc quads Seated Reps: 20 (LAQ are AAROM) Treatments transfers, ambulation, LE strengthening Assessment Current Status: Fair Progress Patient had to take many standing rest breaks during ambulation PT Jail Goals Railroad Whe[employer] Axles Inspector Goals PT Jail Goals Time Frame: Aug 25, 2021 Roll Left & Right (QC): 6 Sit to Lying (QC): 6 Lying-Sitting on Side/Bed(QC): 6 Sit to Stand (QC): 6 Chair/Zdm-no-Vlpfk Xfer(QC): 6 Toilet Transfer (QC): 6 Walk 10 feet (QC): 6 Walk 50ft with 2 Turns (QC): 6 Walk 150 ft (QC): 6 Walking 10ft on Uneven Surface: 6 1 Step (curb) (QC): 6 4 Steps (QC): 6 PT Plan Problem List Problem List: Activity Tolerance, Functional Strength, Safety, Balance, Gait, Transfer, Bed Mobility, ROM Treatment/Plan Treatment Plan: Continue Plan of Care Treatment Plan: Bed Mobility, Education, Functional Activity Wilda, Functional Strength, Gait, Safety, Therapeutic Exercise, Transfers Treatment Duration: Aug 25, 2021 Frequency: 11 times per week Estimated Hrs Per Day: .5 hour per day (to 1 hour) Patient and/or Family Agrees t: Yes Safety Risks/Education Patient Education: Gait Training, Transfer Techniques, Reviewed Use of Ice, Correct Positioning, Safety Issues Teaching Recipient: Patient Teaching Methods: Demonstration, Discussion Response to Teaching: Reinforcement Needed Time/GCodes Time In: 1402 Time Out: 1418 Total Billed Treatment Time: 16 Total Billed Treatment 1 visit FA WILIAN ESCOBEDO PT Aug 22, 2021 14:33
[2021-08-22 15:17] VITALS: BP 133/65
[2021-08-22 19:01] VITALS: BP 127/68
[2021-08-22] MEDS: RIVAROXABAN 20 MG TABLET (XARELTO) PO SCH (19:52)
[2021-08-22] MEDS: SIMvastatin 20 MG (ZOCOR) TAB PO SCH (19:53)
[2021-08-22 23:45] VITALS: BP 153/68
[2021-08-23 04:17] VITALS: BP 153/66
[2021-08-23] MEDS: MULTIVIT W/MINERALS TAB (THERAGRAN M) PO SCH (06:10)
[2021-08-23 06:34] LABS: HEMOGLOBIN 10.8 g/dL (13.3-17.7)
[2021-08-23 08:00] VITALS: BP 149/67
[2021-08-23] MEDS: CHLORTHALIDONE 25 MG (HYGROTON) TABLET PO SCH (09:20)
[2021-08-23] MEDS: FLECAINIDE 100 MG (TAMBOCOR) TAB PO SCH (09:20)
[2021-08-23] MEDS: meTOprolol TARTRATE 25 MG (LOPRESSOR) TABLET PO SCH (09:20)
[2021-08-23] MEDS: SENNA W/DOCUSATE (SENOKOT S) TABLET PO SCH (09:20)
--- NOTE | 2021-08-23 10:13 | Physical Therapy Daily Note ---
PT Daily Note-Current Subjective Patient c/o CORRIGAN this amaxine RN notified. Agrees to PT. Patient will dismiss to home with spouse and home health on this date. Pain Numeric Pain Scale: 5-Moderate Pain Location: Left Location Body Site: Knee Pain Description: Acute Mental Status Patient Orientation: Normal For Age Transfers SCALE: Activities may be completed with or without assistive devices. 0-Eofzpskeno-oksbmbp completes the activity by him/herself with no assistance from a helper. 5-Set-up or Clean-up Assistance-helper sets up or cleans up; patient completes activity. [place] assists only prior to or following the activity. 4-Supervision or Touching Assistance-helper provides verbal cues and/or touching/steadying and/or contact guard assistance as patient completes activity. Assistance may be provided throughout the activity or intermittently. 3-Partial/Moderate Assistance-helper does LESS THAN HALF the effort. [place] lifts, holds or supports trunk or limbs, but provides less than half the effort. 2-Substantial/Maximal Assistance-helper does MORE THAN HALF the effort. [place] lifts or holds trunk or limbs and provides more than half the effort. 8-Eazaoysie-hhwltk does ALL the effort. Patient does none of the effort to complete the activity. Or, the assistance of 2 or more helpers is required for the patient to complete the activity. If activity was not attempted, code reason: 7-Patient Refused. 9-Not Applicable-not attempted and the patient did not perform the activity before the current illness, exacerbation or injury. 10-Not Attempted due to Environmental Limitations-(lack of equipment, weather restraints, etc.). 88-Not Attempted due to Medical Conditions or Safety Concerns. Sit to Stand (QC): 6 Weight Bearing Right Lower Extremity: Right Full Weight Bearing Left Lower Extremity: Left Weight Bearing/Tolerated Gait Training Does the Patient Walk?: Yes Distance: 175' x 2 Walk 10 feet (QC): 6 Walk 50 ft with 2 Turns(QC): 6 Walk 150 ft (QC): 6 Gait Assistive Device: FWW very slow, antalgic, flexed knee and trunk posture Stair Training Stair Training: Handrails/: 1 handrail, uses walker #of Steps: 4 1 Step (curb) (QC): 4 4 Steps (QC): 4 Stairs: Pattern: Step to Exercises Seated Therapy Exercises: Ankle pumps, Chair press-ups Seated Reps: 15 Assessment Patient continues to have difficulty with LAQ (quad contraction) left LE. AAROM with exercises. Education on importance of performing HEP 2-3/day at 15 reps with patient voicing understanding. Patient progressing with treatment plan and will dismiss to home on this date. PT Probation Counselor Goals Probation Counselor Goals PT Prison Goals Time Frame: Aug 25, 2021 Roll Left & Right (QC): 6 Sit to Lying (QC): 6 Lying-Sitting on Side/Bed(QC): 6 Sit to Stand (QC): 6 Chair/Prl-ts-Fvkkj Xfer(QC): 6 Toilet Transfer (QC): 6 Walk 10 feet (QC): 6 Walk 50ft with 2 Turns (QC): 6 Walk 150 ft (QC): 6 Walking 10ft on Uneven Surface: 6 1 Step (curb) (QC): 6 4 Steps (QC): 6 PT Plan Treatment/Plan Treatment Plan: Discontinue PT Treatment Plan: Bed Mobility, Education, Functional Activity Wilda, Functional Strength, Gait, Safety, Therapeutic Exercise, Transfers Treatment Duration: Aug 25, 2021 Frequency: 11 times per week Estimated Hrs Per Day: .5 hour per day (to 1 hour) Patient and/or Family Agrees t: Yes Time/GCodes Time In: 800 Time Out: 823 Total Billed Treatment Time: 23 Total Billed Treatment 1 visit FA x 2 23 min IRVING NG PT Aug 23, 2021 10:13
--- NOTE | 2021-08-23 10:50 | Occupational Ther Daily Note ---
OT Current Status-Daily Note Subjective Pt reports possible d/c home later today. Appearance Left sitting in chair, present. Mental Status/Objective Attachments: IV ADL-Treatment Therapy Code Descriptions/Definitions Functional [place] Measure: 0=Not Assessed/NA 4=Minimal Assistance 1=Total Assistance 5=Supervision or Setup 2=Maximal Assistance 6=Modified [place] 3=Moderate Assistance 7=Complete IndependenceSCALE: Activities may be completed with or without assistive devices. 9-Bnkrwxgklc-hfwprpt completes the activity by him/herself with no assistance from a helper. 5-Set-up or Clean-up Assistance-helper sets up or cleans up; patient completes activity. [place] assists only prior to or following the activity. 4-Supervision or Touching Assistance-helper provides verbal cues and/or touching/steadying and/or contact guard assistance as patient completes activity. Assistance may be provided throughout the activity or intermittently. 3-Partial/Moderate Assistance-helper does LESS THAN HALF the effort. [place] lifts, holds or supports trunk or limbs, but provides less than half the effort. 2-Substantial/Maximal Assistance-helper does MORE THAN HALF the effort. [place] lifts or holds trunk or limbs and provides more than half the effort. 5-Cwymmsdyi-banyiz does ALL the effort. Patient does none of the effort to complete the activity. Or, the assistance of 2 or more helpers is required for the patient to complete the activity. If activity was not attempted, code reason: 7-Patient Refused. 9-Not Applicable-not attempted and the patient did not perform the activity before the current illness, exacerbation or injury. 10-Not Attempted due to Environmental Limitations-(lack of equipment, weather restraints, etc.). 88-Not Attempted due to Medical Conditions or Safety Concerns. Pt sitting in chair, reports possible d/c later today. Declines all adls and verbalizes no other OT services warranted at this time. Education provided to pt/family on management/care of incision with bathing tasks, car transfers, as well as any equipment to help with energy conservation and safety. Family appreciative of services. OT to discharge at this time. Education OT Patient Education: Disease process, Energy conservation, Exercise program, Modified ADL techniques, Progress toward Goal/Update tx plan, Safety issues, Transfer techniques, Use of adapted equipment Teaching Recipient: Patient, Family Teaching Methods: Demonstration, Discussion Response to Teaching: Verbalize Understanding OT University Tutor Goals University Tutor Goals Time Frame: Aug 28, 2021 Oral Hygiene (QC): 5 Toileting Hygiene (QC): 5 Lower Body Dressing (QC): 4 On/Off Footwear (QC): 4 1=Demonstrate adherence to instructed precautions during ADL tasks. 2=Patient will verbalize/demonstrate understanding of assistive devices/modifications for ADL. 3=Patient will improve strength/tolerance for activity to enable patient to perform ADL's. OT Education/Plan Discharge Recommendations Plan/Recommendations: Discontinue OT Treatment Plan/Plan of Care Treatment,Training & Education: Yes Patient would benefit from OT for education, treatment and training to promote independence in ADL's, mobility, safety and/or upper extremity function for ADL's. Plan of Care: ADL Retraining, Functional Mobility, UE Funct Exercise/Act Treatment Duration: Aug 28, 2021 Frequency: 4 times per week Agreement: Yes Rehab Potential: Fair Time/GCodes Start Time: 10:32 Stop Time: 10:41 Total Time Billed (hr/min): 9 Billed Treatment Time 1 visit ADL Elida Billy OT Aug 23, 2021 10:50
[2021-08-23] MEDS ORDERED: OXC5T PO (11:17)
[2021-08-23 11:23] VITALS: BP 145/67
--- NOTE | 2021-08-23 11:23 | Discharge Summary ---
Discharge Summary Hospital Course Hospital Course Date of Admission: Aug 20, 2021 at 05:59 Admission Diagnosis : Left Knee Primary OA Family Physician/Provider: Date of Discharge: 08/23/21 Discharge Diagnosis: Left Knee Primary OA Hospital Course: Admitted on 08/20/21. Underwent left total knee arthroplasty. Tolerated the procedure well and was admitted to the regular floor. On the day of surgery, he did start DVT prophylaxis and therapy/use of the CPM. On POD #1, his pain required IV medication as welld as an oral regimen. He made some progress with therapy. On POD #2, he continued to improve from a mobility standpoint. His pain was controlled on oral medication. Arrangements were made for home health. On POD #3, he was ambulating well over 100 feet. He was tolerating a regular diet. He was ready for discharge home. Labs and Pending Lab Test: Laboratory Tests 08/23/21 05:24: Hemoglobin 10.8L, Hematocrit 33L Home Meds Active Reported Chlorthalidone 25 Mg Tablet 25 Mg PO DAILY Diltiazem ER (Diltiazem HCl) 240 Mg Tab.er.24h 240 Mg PO DAILY Lovastatin 40 Mg Tablet 40 Mg PO HS Xarelto (Rivaroxaban) 20 Mg Tablet 20 Mg PO HS Flecainide Acetate 50 Mg Tablet 50 Mg PO BID Metoprolol Tartrate 25 Mg Tablet 25 Mg PO BID Assessment/Pt Instructions Dry dressing daily with telfa and netting; keep incision dry until follow up with me. Remain weightbearing as tolerated with walker. Home health physical therapy for range of motion, strengthening, and gait training. Discharge Instructions Discharge Diet: Regular Diet Discharge Physical Examination Vital Signs Vital Signs Date Time Temp Pulse Resp B/P (MAP) Pulse Ox O2 Delivery O2 Flow Rate FiO2 08/23/21 09:00 Room Air 08/23/21 08:00 37.1 83 20 149/67 (94) 94 08/23/21 04:17 3.00 Extremity: Other (Incision site clean, dry, and intact, +DF of ankle, no s/s of DVT) Allergies: Coded Allergies: No Known Drug Allergies (Unverified , 07/24/21) Discharge Summary Date of Admission Aug 20, 2021 at 05:59 Date of Discharge MAEVE CANADA MD Aug 23, 2021 11:23
--- NOTE | 2021-08-23 11:30 | D/C HH Face to Face Order ---
D/C Face to Face Orders Instructions for Patient Patient Instructions/FollowUp: [address] Montanez Physician to follow Patient: Matias Montanez Discharge Diet for Home: Regular Diet Patient Data-Allergies,Ht & Wt Patient Allergies: Coded Allergies: No Known Drug Allergies (Unverified , 07/24/21) Home Health Need/Face to Face Date of Face to Face: Aug 23, 2021 Clinical Findings: Generalized weakness and fatigue, Pain with ambulation, Unsteady gait I have seen Pt yaaf-gl-kzgm: Yes Discharged To: Home Diagnosis/Conditions: s/p L TKA Patient is Homebound due to: Muscle weakness, Pain w/ambulation Homebound Status Due to the above stated illness, injury or surgical procedure (medical condition or diagnosis) and associated clinical findings, the patient is homebound because of his/her inability to leave home except with aid of a supp ortive device and/or person AND leaving the home requires a considerable and taxing effort or is medically contraindicated. Pt req the following assistanc: Walker Home Health Nursing Orders Home Health Services Order: Physical Therapy-Evaluate & Treat Home Health Infusion Therapy Line Start Date: Aug 20, 2021 Therapy Orders Therapy Orders: Physical Therapy Therapy Specific Orders: Gait training, Increase strength/endurance, Restore ROM Certify Stmt I certify that this patient is under my care and that I, a nurse practitioner or a physician; a lpn or medical assistant working with me, had a face to face encounter that - meets the physician face to face encounter requirements with this patient as dated. MATIAS MONTANEZ MD Aug 23, 2021 11:30
--- NOTE | 2021-08-23 14:32 | Physical Therapy Daily Note ---
PT Daily Note-Current Subjective Patient and spouse agree to PT. Pain Numeric Pain Scale: 7 Location: Left Location Body Site: Knee Pain Description: Acute Mental Status Patient Orientation: Normal For Age Transfers SCALE: Activities may be completed with or without assistive devices. 1-Zjrklmyzmf-cdmyqrp completes the activity by him/herself with no assistance from a helper. 5-Set-up or Clean-up Assistance-helper sets up or cleans up; patient completes activity. [place] assists only prior to or following the activity. 4-Supervision or Touching Assistance-helper provides verbal cues and/or touching/steadying and/or contact guard assistance as patient completes activity. Assistance may be provided throughout the activity or intermittently. 3-Partial/Moderate Assistance-helper does LESS THAN HALF the effort. [place] lifts, holds or supports trunk or limbs, but provides less than half the effort. 2-Substantial/Maximal Assistance-helper does MORE THAN HALF the effort. [place] lifts or holds trunk or limbs and provides more than half the effort. 0-Ixwjjnaah-yhwoxg does ALL the effort. Patient does none of the effort to complete the activity. Or, the assistance of 2 or more helpers is required for the patient to complete the activity. If activity was not attempted, code reason: 7-Patient Refused. 9-Not Applicable-not attempted and the patient did not perform the activity before the current illness, exacerbation or injury. 10-Not Attempted due to Environmental Limitations-(lack of equipment, weather restraints, etc.). 88-Not Attempted due to Medical Conditions or Safety Concerns. Sit to Lying (QC): 6 Lying to Sitting/Side of Bed(Q: 6 Sit to Stand (QC): 6 Chair/Jcp-io-Qeuhf Xfer(QC): 6 Weight Bearing Right Lower Extremity: Right Full Weight Bearing Left Lower Extremity: Left Weight Bearing/Tolerated Gait Training Distance: 275' Walk 10 feet (QC): 6 Walk 50 ft with 2 Turns(QC): 6 Walk 150 ft (QC): 6 Gait Assistive Device: FWW slow, antalgic gait sequence Exercises Supine Ex: Ankle pumps, Quad Set, Heel Slides, Straight leg raise Supine Reps: 10 Seated Therapy Exercises: Long arc quads Seated Reps: 12 Assessment Current Status: Excellent Progress Patient much improved this p.m. Patient to dismiss to home with spouse and home health PT Chain Maker Loom Control Goals Chain [employer] Control Goals PT Senior Living Goals Time Frame: Aug 25, 2021 Roll Left & Right (QC): 6 Sit to Lying (QC): 6 Lying-Sitting on Side/Bed(QC): 6 Sit to Stand (QC): 6 Chair/Tjx-en-Rfjxb Xfer(QC): 6 Toilet Transfer (QC): 6 Walk 10 feet (QC): 6 Walk 50ft with 2 Turns (QC): 6 Walk 150 ft (QC): 6 Walking 10ft on Uneven Surface: 6 1 Step (curb) (QC): 6 4 Steps (QC): 6 PT Plan Treatment/Plan Treatment Plan: Discontinue PT Treatment Plan: Bed Mobility, Education, Functional Activity [place], Functional Strength, Gait, Safety, Therapeutic Exercise, Transfers Treatment Duration: Aug 25, 2021 Frequency: 11 times per week Estimated Hrs Per Day: .5 hour per day (to 1 hour) Patient and/or Family Agrees t: Yes Time/GCodes Time In: 1315 Time Out: 1330 Total Billed Treatment Time: 15 Total Billed Treatment 1 visit FA 15 min IRVING NG PT Aug 23, 2021 14:32
== END 2021-08-23 14:10 | disposition home health service (06) | DRG 470 ==
LOC: 4TH 05:59 → SURG 06:00 → 4TH 11:20
PROVIDERS: ADMIT Orthopaedic Surgery; ATTEND Orthopaedic Surgery
PROC: 5A09357 Assistance with Respiratory Ventilation, Less than 24 Consecutive Hours, Continuous Positive Airway Pressure (ICD-10-PCS; 2021-08-20)
PROC: 0SRD0J9 Replacement of Left Knee Joint with Synthetic Substitute, Cemented, Open Approach (ICD-10-PCS; principal; 2021-08-20 07:30)
DX: M17.12 Unilateral primary osteoarthritis, left knee (principal)
CPT/HCPCS: 36415; 73560; 85014; 85018; 86850; 86900; 86901; 94760

== ENCOUNTER → 2021-09-04 | Outpatient (CLI) | payer MEDICARE, OTHER ==
[~2021-09-04] MED LIST changes: +OXC5T PO
== END ==
LOC: ORTHO 09:00
PROVIDERS: ATTEND Orthopaedic Surgery
DX: Z47.89 Encounter for other orthopedic aftercare (principal); Z98.890 Other specified postprocedural states

== ENCOUNTER → 2021-10-02 | Outpatient (CLI) | payer MEDICARE, OTHER ==
--- NOTE | 2021-10-02 11:09 | Diagnostic Imaging Report ---
Indication: Follow-up arthroplasty left knee. History of knee pain. Comparison with 08/20/2021. FINDINGS: The total arthroplasty is again identified. The components remain in good position. No evidence of hardware loosening. There are no cortical bony fractures. No significant soft tissue swelling noted at this time. IMPRESSION: Satisfactory appearing total arthroplasty left knee. Dictated by: Dictated on workstation # [id number]
== END ==
LOC: ORTHO 09:12
PROVIDERS: ATTEND Orthopaedic Surgery
DX: Z96.652 Presence of left artificial knee joint (principal)
CPT/HCPCS: 73560

== ENCOUNTER → 2021-11-13 | Outpatient (CLI) | payer MEDICARE, OTHER | LOC: ORTHO 08:12 | PROVIDERS: ATTEND Orthopaedic Surgery | DX: Z47.89 Encounter for other orthopedic aftercare (principal); Z98.890 Other specified postprocedural states ==

== ENCOUNTER → 2022-08-06 | Outpatient (CLI) | payer MEDICARE, OTHER ==
--- NOTE | 2022-08-06 09:34 | Diagnostic Imaging Report ---
INDICATION: Follow-up orthopedic assessment, postsurgical follow-up COMPARISON: 10/02/2021. TECHNIQUE: Two radiographs of the left knee dated 08/06/2022. FINDINGS: Left total knee arthroplasty is again identified. No evidence of hardware complication. No acute fracture or dislocation. No destructive osseous process. No significant knee joint effusion. Small superior patellar enthesophytes. IMPRESSION: Stable left total knee arthroplasty without evidence of hardware complication or acute osseous abnormality. Dictated by: Dictated on workstation # [id number]
== END ==
LOC: ORTHO 08:20
PROVIDERS: ATTEND Orthopaedic Surgery
DX: Z47.89 Encounter for other orthopedic aftercare (principal); Z96.642 Presence of left artificial hip joint
CPT/HCPCS: 73560; G0463; 99213